=== PATIENT | female | born 1975 | race African-American/Black ===

== ENCOUNTER 2017-01-25 21:40 | Emergency (ER) | payer OTHER ==
[~2017-01-25] VITALS: Ht 165.1 cm; Wt 154.2 kg
[~2017-01-25 21:40] MED LIST: AMLODIPINE BES2.5 MG PO; AMLODIPINE10 MG PO; ASPIR 8181 MG PO; ATENOLOL25 MG PO; ATENOLOL50 MG PO; AUGMENTIN 875 M1 TAB PO; BENTYL20 MG PO; CYCLOBENZAPRINE10 M1 PO; CYCLOBENZAPRINE10 MG PO; DIFLUCAN150 MG PO; ECOTRIN81 MG PO; FLOVENT0.11 MG/Ac INH; GLIMEPIRIDE4 MG PO; GLUCOPHAGE500 MG PO; HYDRODIURIL 2525 MG PO; IBUPROFEN800 M1 PO; IBUPROFEN800 MG PO; LANTUS SOL100 UNIT/1 SC; LISINOPRIL40 MG PO; METFORMIN HCL1000 MG PO; MOBIC 15MG15 MG PO; MOTRIN800 MG PO; MULTIVITAMIN1 TAB PO; NAPROSYN500 M1 PO; NORCO 325 MG-51 TAB PO; PERCOCET 325 MG1 TA2 PO; PROAIR HFA0.09 MG/Ac INH; PROTONIX 20MG T20 MG PO; TAMIFLU 75MG75 MG PO; TESSALON PERLE100 MG PO; TRADJENTA5 MG PO; TYLENOL #31 TAB PO; ZOFRAN ODT4 MG PO
--- NOTE | 2017-01-25 23:49 | ED HEADACHE COMPLAINT ---
History of Present Illness General Chief Complaint: Headache Stated Complaint: PT HAS A HEAD ACHE FOR THREE DAYS Source: patient Exam Limitations: no limitations Vital Signs & Intake/Output Vital Signs & Intake/Output Vital Signs Date Time Temp Pulse Resp B/P B/P Pulse O2 O2 Flow FiO2 Mean Ox Delivery Rate 01/25 2243 96.4 73 16 152/84 95 Room Air ED Intake and Output 01/26 0000 01/25 1200 Intake Total 0 Output Total Balance 0 Intake, Oral 0 Patient 340 lb Weight Weight Reported by Patient Measurement Method Allergies Coded Allergies: capsaicin (From NAPROPAX) (Severe, paralysis of one side of face, mouth ) menthol (From NAPROPAX) (Severe, paralysis of one side of face, mouth 08/04/16) naproxen (From NAPROPAX) (Severe, paralysis of one side of face, mouth 08/04/16 ) NO KNOWN ALLERGIES (08/04/16) Reconcile Medications Albuterol Sulfate (Proair Hfa) 0.09 MG/Actuation CRISTINO 2 PUFF INH PRN ASTHMA ( Reported) Amlodipine Besylate (Amlodipine) 10 MG TAB 1 TAB PO DAILY BP (Reported) Aspirin (Ecotrin) 81 MG ECT 1 TAB PO DAILY HEART/BLOOD (Reported) Atenolol 50 MG TABLET 1 TAB PO DAILY BP (Reported) Cyclobenzaprine HCl 10 MG TABLET 1 TAB PO Q8P SPASMS Cyclobenzaprine HCl 10 MG TABLET 1 TAB PO Q8P PAIN OR SPASM Fluticasone Propionate (Flovent) 0.11 MG/Actuation CRISTINO 2 PUFF INH PRN ASTHMA (Reported) Glimepiride 4 MG TABLET 1 TAB PO BID DIABETES (Reported) Ibuprofen 800 MG TABLET 1 TAB PO TID pain Insulin Glargine,Hum.rec.anlog (Lantus Solostar) 100 UNIT/ML (3 ML) INSULN.PEN 20 UNIT SC QPM DM (Reported) Linagliptin (Tradjenta) 5 MG TABLET 1 TAB PO DAILY DIABETES (Reported) Lisinopril 40 MG TABLET 1 TAB PO DAILY B/P (Reported) METFORMIN HCL (Metformin HCl) 1,000 MG TABLET 1 TAB PO BID DIABETES (Reported ) Pantoprazole Sodium (Protonix) 20 MG TAB 1 TAB PO DAILY STOMACHE ACID Triage Note: TRIAGE: HEADACHE FROM BACK OF HEAD TRAVELS TO FRONT 7/10 X2-3 DAYS, CONSTANT, DENIES MITIGATING FACTORS. ALSO C/O LEFT SIDED NECK PAIN. ENDORSES RUNNY NOSE AND SINUS CONGESTION. +DIZZY, SLIGHT DIFFICULTY FOCUSING VISION. SPEECH IS CLEAR. MEDICATED WITH TYLENOL IN TRIAGE Triage Nurses Notes Reviewed? yes : No Patient currently breastfeeds: No HPI: This patient is a 41-year-old female with past medical history including hypertension who presented to the emergency department today for evaluation of headache 3 days. The patient reported that the headache has been constant over the last 3 days. She reported that he gets up to a 7.5 out of 10. The pain is throbbing and located across her forehead and the back of her head. She reported that she did have some blurry vision that she was sitting in the waiting room. She denied any numbness or tingling in her extremities. No difficulty breathing, chest pain, abdominal pain, auras. She reported dizziness is standing. (BAILEY RIVAS PA-C) Past History Travel History Traveled to [place] past 21 day No Medical History Any Pertinent Medical History? 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 No (BAILEY RIVAS PA-C) Review of Systems Review of Systems Constitutional: Reports: no symptoms. Eyes: Reports: see HPI. Ears, Nose, Throat, Mouth: Reports: no symptoms. Respiratory: Reports: no symptoms. Cardiovascular: Reports: no symptoms. Gastrointestinal/Abdominal: Reports: no symptoms. Genitourinary: Reports: no symptoms. Musculoskeletal: Reports: no symptoms. Skin: Reports: no symptoms. Neurological/Psychological: Reports: see HPI. All Other Systems: Reviewed and Negative (BAILEY RIVAS PA-C) Physical Exam Physical Exam Cranial Nerves: normal hearing, normal speech, PERRL Comments: Well-developed well-nourished person in no acute distress HEENT: Normal EENT exam, head normocephalic, moist mucous membranes PERRLA bilaterally. EOMI bilaterally Nose is atraumatic. She Neck: Supple, no lymphadenopathy. No midline tenderness Back: Normal gait Cardiovascular: Regular rate and rhythm with no murmurs Respiratory: Chest nontender. Extremity: Normal equal pulses Neuro: Alert oriented x3, cranial nerves II through XII grossly intact. Skin: No appreciable rash on exposed skin, skin is warm and dry. Psych: Mood and affect is normal Core Measures Severe Sepsis Present: No Septic Shock Present: No (BAILEY RIVAS PA-C) Progress Differential Diagnosis: carotid dissection, cav sinus thromb, cluster MCINTYRE, IC mass/tumor, intracranial Hem., meningitis, migraine MCINTYRE, sinusitis, SSS thrombosis, subarach. Hem., tension MCINTYRE, temporal arteritis, TMJ syndrome Plan of Care: Current Medications Sig/Dee Start time Last Medication Dose Stop Time Status Admin Morphine Sulfate 4 MG ONCE ONE 01/25 2345 CAN (Morphine) 01/25 2346 Promethazine HCl 25 MG ONCE ONE 01/25 2345 CAN (Phenergen) 01/25 2346 Sodium Chloride 1,000 ML BOLUS ONE 01/25 2345 CAN (Normal Saline 0.9%) 01/26 0044 Comments: Upon initially approaching the patient's bedside, she is sleeping comfortably on stretcher. No acute distress. Nontoxic appearing. No focal neurologic deficits on physical examination. Likely migraine headache. Stable for discharge home. (BAILEY RIVAS PA-C) Departure Departure Disposition: HOME OR SELF CARE Condition: Stable Clinical Impression Primary Impression: Headache Qualifiers: Headache type: unspecified Headache chronicity pattern: unspecified pattern Intractability: not intractable Qualified Code: R51 - Headache Referrals: YEE VERGARA MD (PCP/Family) Additional Instructions: Rest and be sure to stay hydrated. Please follow-up with your primary care physician. Return for any worsening symptoms or concerns. Departure Forms: Customer Survey General Discharge Information Prescriptions: Current Visit Scripts Cyclobenzaprine HCl 1 TAB PO Q8P #20 TAB (BAILEY RIVAS PA-C) PA/BULL GANG SUPERVISOR Co-Sign Statement Statement: ED Attending supervision documentation- [] I saw and evaluated the patient. I have also reviewed all the pertinent lab results and diagnostic results. I agree with the findings and the plan of care as documented in the PA's/BULL GANG SUPERVISOR's documentation. [X] I have reviewed the ED Record and agree with the PA's/BULL GANG SUPERVISOR's documentation. [] Additions or exceptions (if any) to the PAs/BULL GANG SUPERVISOR's note and plan are summarized below: [] (PROSPER LEE,ALLEGRA Guillen)
[2017-01-26] MEDS ORDERED: CYCLOBENZAPRINE10 M1 PO (05:52)
[2017-01-26 05:54] VITALS: BP 156/91
== END 2017-01-26 05:59 ==
LOC: ERH 21:40
DX: R51 Headache (principal)
CPT/HCPCS: 96372

== ENCOUNTER 2017-02-21 13:21 | Emergency (ER) | payer OTHER ==
[~2017-02-21] VITALS: Ht 165.1 cm; Wt 152.9 kg
--- NOTE | 2017-02-21 13:39 | ED SKIN/ALLERGY COMPLAINT ---
History of Present Illness General Chief Complaint: General Adult Stated Complaint: SKIN HARDENING/DISCOLORATION LOWER LT LEG Source: patient Exam Limitations: no limitations Vital Signs & Intake/Output Vital Signs & Intake/Output Vital Signs Date Time Temp Pulse Resp B/P B/P Pulse O2 O2 Flow FiO2 Mean Ox Delivery Rate 02/21 1430 229/97 02/21 1416 97.3 71 18 229/97 99 Room Air 02/21 1331 96.9 73 18 163/112 100 Room Air ED Intake and Output 02/22 0000 02/21 1200 Intake Total Output Total Balance Patient 337 lb Weight Weight Reported by Patient Measurement Method Allergies Coded Allergies: capsaicin (From NAPROPAX) (Severe, paralysis of one side of face, mouth ) menthol (From NAPROPAX) (Severe, paralysis of one side of face, mouth 08/04/16) naproxen (From NAPROPAX) (Severe, paralysis of one side of face, mouth 08/04/16 ) NO KNOWN ALLERGIES (08/04/16) Reconcile Medications Albuterol Sulfate (Proair Hfa) 0.09 MG/Actuation CRISTINO 2 PUFF INH PRN ASTHMA ( Reported) Albuterol Sulfate (Proair Hfa) 90 MCG HFA.AER.AD 2 PUF INH Q4-6 PRN PRN ASTHMA (Reported) Amlodipine Besylate (Amlodipine) 10 MG TAB 1 TAB PO DAILY BP (Reported) Amlodipine Besylate 10 MG TABLET 1 TAB PO DAILY HTN (Reported) Aspirin (Ecotrin) 81 MG ECT 1 TAB PO DAILY HEART/BLOOD (Reported) Atenolol 50 MG TABLET 1 TAB PO DAILY BP (Reported) Atenolol 50 MG TABLET 1 TAB PO DAILY HTN (Reported) Cyclobenzaprine HCl 10 MG TABLET 1 TAB PO Q8P SPASMS Cyclobenzaprine HCl 10 MG TABLET 1 TAB PO Q8P PAIN OR SPASM Fluticasone Propionate (Flovent) 0.11 MG/Actuation CRISTINO 2 PUFF INH PRN ASTHMA (Reported) Fluticasone Propionate (Flovent Hfa) 110 MCG/ACTUATION AER.W.ADAP 2 PUF INH BID ASTHMA (Reported) Furosemide 20 MG TABLET 1 TAB PO DAILY FLUID RETENSION (Reported) Glimepiride 4 MG TABLET 1 TAB PO BID DIABETES (Reported) Glimepiride 4 MG TABLET 1 TAB PO DAILY DIABETES (Reported) Hydrochlorothiazide 25 MG TABLET 1 TAB PO DAILY HTN (Reported) Ibuprofen 800 MG TABLET 1 TAB PO TID pain Insulin Glargine,Hum.rec.anlog (Lantus Solostar) 100 UNIT/ML (3 ML) INSULN.PEN 20 UNIT SC QPM DM (Reported) [LANCETS] TEST GLUCOSE 3 TIMES PER DAY Linagliptin (Tradjenta) 5 MG TABLET 1 TAB PO DAILY DIABETES (Reported) Linagliptin (Tradjenta) 5 MG TABLET 1 TAB PO DAILY DIABETES (Reported) Lisinopril 40 MG TABLET 1 TAB PO DAILY B/P (Reported) Lisinopril 40 MG TABLET 1 TAB PO DAILY HTN (Reported) Meloxicam 15 MG TABLET 1 TAB PO DAILY ANTI-INFLAMMATORY (Reported) METFORMIN HCL (Metformin HCl) 1,000 MG TABLET 1 TAB PO BID DIABETES (Reported ) Metformin HCl 1,000 MG TABLET 1 TAB PO BID DIABETES (Reported) Pantoprazole Sodium (Protonix) 20 MG TAB 1 TAB PO DAILY STOMACHE ACID Triage Note: C/O SMALL, DARK, HARD AREA ON LEFT LOWER LEG. DENIES INJURY OR INSECT BITE. Triage Nurses Notes Reviewed? yes Onset: Abrupt Duration: day(s): (1) Timing: single episode today Severity: mild Possible Factors: no cause identified No Modifying Factors: none : No Patient currently breastfeeds: No HPI: This is a 41-year-old female with history of diabetes, recent significant weight loss with diet and exercise who presents to the ER with chief complaint of bump to her left lower extremity. She denies any pain or trauma. She has the chest skin is changed to dark black. He was never red or warm. She was worried that it might be a clot. Denies any chest pain or sinus red. She does not check her sugars regularly. Past History Travel History Traveled to [place] past 21 day No Medical History Any Pertinent Medical History? 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 No Review of Systems Review of Systems Constitutional: Denies: chills, fever. EENTM: Reports: no symptoms. Respiratory: Denies: cough, short of breath, sputum production. Cardiovascular: Denies: chest pain, palpitations, peripheral edema. GI: Denies: abdominal pain, vomiting. Genitourinary: Denies: discharge, dysuria. Musculoskeletal: Reports: no symptoms. Skin: Reports: lesions, lumps. Neurological/Psychological: Reports: no symptoms. Hematologic/Endocrine: Reports: no symptoms. Immunologic/Allergic: Reports: no symptoms. All Other Systems: Reviewed and Negative Physical Exam Physical Exam General Appearance: well developed/nourished, alert, awake, mild distress, obese Head: atraumatic Eyes: Bilateral: PERRL, EOMI. Ears, Nose, Throat: normal pharynx, normal ENT inspection, hearing grossly normal Neck: normal inspection, supple Respiratory: normal breath sounds Cardiovascular: regular rate/rhythm Peripheral Pulses: 2+ radial (R), 2+ radial (L) Gastrointestinal: soft, non-tender, OBESE Back: normal inspection Extremities: normal inspection, normal range of motion, no edema Neurologic/Psych: awake, alert, oriented x 3, normal mood/affect Skin: intact, normal color, warm/dry Skin Problem Location: LEFT LOWER LEG Skin Problem Character: thickening, FINGERTIP AREA OF DISCOLORED, HARD SKIN OVER LEFT LATERAL LOWER LEG Lymphatic: no anterior cervical reina Progress Differential Diagnosis: UNCONTROLLED DM, UNCONTROLLED HTN, CHRONIC SKIN CHANGES, MEDICATION NON COMPLAINCE, FURUNCLE, HYPERTROPHIC SKIN CHANGES, KELOID Plan of Care: Current Medications Sig/Dee Start time Last Medication Dose Stop Time Status Admin Amlodipine Besylate 10 MG ONCE ONE 02/21 143 UNVr (Norvasc) 02/21 1431 Atenolol 50 MG ONCE ONE 02/21 1430 UNVr (Tenormin) 02/21 143 Hydrochlorothiazide 25 MG ONCE ONE 02/21 1430 UNVr (Hydrodiuril) 02/21 143 Lisinopril 40 MG ONCE ONE 02/21 1430 UNVr (Prinivil) 02/21 143 ELEVATED FINGERSTICK. PATIENT DENIES IV, LABS, STATES THAT IT IS MUCH BETTER THAN HER USUAL SUGAR'S IN THE 600'S. BP ELEVATED, PATIETN STATES SHE DID NOT TAKE HER MEDS. AGREES TO PAIN BP MEDS. PATIENT ELOPED FROM THE ED. (CATHERINE LEE,CHI) Departure Departure Time of Disposition: 1550 Disposition: ER WALKOUT Condition: Stable Clinical Impression Primary Impression: Skin abnormality Secondary Impressions: Hyperglycemia, Hypertensive urgency Referrals: YEE VERGARA MD (PCP/Family) Additional Instructions: Warm soaks to the area. If you start to develop any redness or fever please return. Otherwise follow up with her primary care doctor. You may require further evaluation with a manager data warehousing for further evaluation for 6 weeks. Departure Forms: Customer Survey General Discharge Information Prescriptions: Current Visit Scripts [GLUCOSE TEST STRIP] BOX #1 [LANCETS] #1 BOX TEST GLUCOSE 3 TIMES PER DAY ED Attending Observation Initial Observation Note: I have seen and personally examined SLAUD HERNANDES on 02/22/17 at 1015. I agree with the current emergency department documentation. The disposition (admission or discharge) is uncertain at this time, she needs a period of observation for the following reason(s): The ED Nurse caring for this patient has been personally informed as to what the patient is being observed for.
[2017-02-21] MEDS ORDERED: LISINOPRIL40 M1 PO (13:48)
[2017-02-21] MEDS ORDERED: PROAIR HFA8.5 GM INH (13:48)
[2017-02-21] MEDS ORDERED: FLOVENT HFA12 G1 INH (13:48)
[2017-02-21] MEDS ORDERED: GLIMEPIRIDE4 M1 PO (13:49)
[2017-02-21] MEDS ORDERED: HYDROCHLOROTHIA25 M1 PO (13:49)
[2017-02-21] MEDS ORDERED: TRADJENTA5 M1 PO (13:49)
[2017-02-21] MEDS ORDERED: METFORMIN HCL1000 M1 PO (13:50)
[2017-02-21] MEDS ORDERED: ATENOLOL50 M1 PO (13:50)
[2017-02-21] MEDS ORDERED: AMLODIPINE BESY10 M1 PO (13:50)
[2017-02-21] MEDS ORDERED: MELOXICAM15 M1 PO (13:50)
[2017-02-21] MEDS ORDERED: FUROSEMIDE20 M1 PO (13:51)
[2017-02-21] MEDS ORDERED: LANCETS (14:10)
[2017-02-21] MEDS ORDERED: GLUCOSE TEST STRIP (14:10)
[2017-02-21 14:30] VITALS: BP 229/97
== END 2017-02-21 15:40 ==
LOC: ERH 13:21
DX: L98.9 Disorder of the skin and subcutaneous tissue, unspecified (principal); I16.0 Hypertensive urgency; E11.65 Type 2 diabetes mellitus with hyperglycemia; Z79.84 Long term (current) use of oral hypoglycemic drugs

== ENCOUNTER 2017-11-22 20:36 | Emergency (ER) | payer OTHER ==
[~2017-11-22] VITALS: Ht 170.2 cm; Wt 149.7 kg
[~2017-11-22 20:36] MED LIST changes: -AUGMENTIN 875-1 EACH PO; -MAGIC MOUTHWAS PO
--- NOTE | 2017-11-23 01:00 | ED THROAT/DENTAL COMPLAINT ---
History of Present Illness General Chief Complaint: Sore Throat, Dental Pain Stated Complaint: COMPLICATION WITH SURGERY TODAY Source: patient, family, old records Exam Limitations: no limitations Vital Signs & Intake/Output Vital Signs & Intake/Output Vital Signs Date Time Temp Pulse Resp B/P B/P Pulse O2 O2 Flow FiO2 Mean Ox Delivery Rate 11/23 010 98.9 86 18 135/88 96 11/221 97.8 77 20 166/99 99 Room Air ED Intake and Output 11/23 0000 11/22 1200 Intake Total Output Total Balance Patient 330 lb Weight Weight Estimated Measurement Method Allergies Coded Allergies: naproxen (From NAPROSYN) (Severe, STROKE SYMPTOMS IN FACE PER PT 05/27/17) Anesthetics - Amide Type (LIPS AND FACE SWELLED 11/18/17) Anesthetics - Nemo Type- Parabens (LIPS AND FACE SWELLED 11/18/17) Uncoded Allergies: IV CONTRAST (Severe, SOB W/ THROAT TIGHTENING 11/23/17) Reconcile Medications Albuterol Sulfate (Proair Hfa) 90 MCG HFA.AER.AD 2 PUF INH Q4-6 PRN PRN ASTHMA (Reported) Amlodipine Besylate 10 MG TABLET 1 TAB PO DAILY HTN (Reported) Aspirin (Ecotrin*) 81 MG TABLET.DR 1 TAB PO DAILY HEART/BLOOD (Reported) Atenolol 50 MG TABLET 1 TAB PO DAILY HTN (Reported) Cyanocobalamin (Vitamin B-12) (Cyanocobalamin Injection) 1,000 MCG/ML VIAL 1 ML IM Q30D SUPPLEMENT (Reported) Cyclobenzaprine HCl 10 MG TABLET 1 TAB PO BID PRN MUSCLE SPASMS (Reported) Fluticasone Propionate (Flovent Hfa) 110 MCG/ACTUATION AER.W.ADAP 2 PUF INH BID ASTHMA (Reported) Furosemide 20 MG TABLET 1 TAB PO DAILY FLUID RETENSION (Reported) Glimepiride 4 MG TABLET 1 TAB PO BID DM (Reported) Hydrochlorothiazide 25 MG TABLET 1 TAB PO DAILY HTN (Reported) Hydroxyzine Pamoate 50 MG CAPSULE 1 CAP PO TID PRN allergic reaction/hives Ibuprofen 800 MG TABLET 1 TAB PO TID PRN PAIN (Reported) Insulin Glargine,Hum.rec.anlog (Lantus Solostar) 100 UNIT/ML (3 ML) INSULN.PEN 20 UNIT SC QPM DM (Reported) Linagliptin (Tradjenta) 5 MG TABLET 1 TAB PO DAILY DIABETES (Reported) Lisinopril 40 MG TABLET 1 TAB PO DAILY HTN (Reported) [Magic mouthwas] 5-10 ML PO Q6P PRN mouth pain 1:1:1=maalox:lidocaine:benadryl Meloxicam 15 MG TABLET 1 TAB PO DAILY PRN PAIN/INFLAMMATION (Reported) Metformin HCl 1,000 MG TABLET 1 TAB PO BID DIABETES (Reported) [SINTIA] 1 CAP PO BID DIET SUPPLEMENT (Reported) Core Measure Meds Pre-Hospital aspirin Triage Note: PT TO TRIAGE S/P GALLBLADDER REMOVAL TODAY. PT DENIES ANY COMPLAINTS OR COMPLICATIONS WITH SURGICAL SITE HOWEVER IS C/O PAIN TO RIGHT SIDE OF MOUTH. PER PT NOTICED HOLE IN BACK OF MOUTH PRIOR TO GOING HOME TODAY. ANESTHESIOLOGIST CAME TO SEE PT AND TOLD PT IT WAS A SCRATCH FROM INTUBATION PER PT. 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 yes Onset: Afternoon Duration: hour(s):, constant, continues in ED Timing: recent history Injury Environment: hospital Severity: moderate, severe Modifying Factors: Worsens With: eating, movement. LMP (ages 10-50): unknown : No Patient currently breastfeeds: No HPI: 12 hours prior to admission patient completed laparoscopic cholecystectomy in recovery complained of right tongue pain that has progressed in severity with right neck pain and swelling worse with movement palpation sharp constant. She denies fever chills nausea vomiting diarrhea abdominal pain chest pain shortness of breath headache dysuria. Past History Travel History Traveled to [place] past 21 day No Medical History Any Pertinent Medical History? 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 No Review of Systems Review of Systems Constitutional: Reports: no symptoms. EENTM: Reports: see HPI, mouth pain. Respiratory: Reports: no symptoms. Cardiovascular: Reports: no symptoms. GI: Reports: no symptoms. Genitourinary: Reports: no symptoms. Musculoskeletal: Reports: see HPI, neck pain. Skin: Reports: no symptoms. Neurological/Psychological: Reports: no symptoms. Hematologic/Endocrine: Reports: no symptoms. Immunologic/Allergic: Reports: no symptoms. All Other Systems: Reviewed and Negative Physical Exam Physical Exam General Appearance: well developed/nourished, alert, awake, anxious, moderate distress, obese Head: atraumatic, normal appearance Eyes: Bilateral: normal appearance, PERRL, EOMI. Ears: Bilateral: canal normal, Tympanic normal. Nose: normal inspection Mouth/Throat: base of tongue with abrasion not actively bleeding Neck: supple, tender lateral Cardiovascular/Respiratory: normal breath sounds, normal peripheral pulses, regular rate/rhythm, no respiratory distress Gastrointestinal: wounds healing well Back: normal inspection, normal range of motion, no vertebral tenderness Neurologic/Psych: no motor/sensory deficits, awake, alert, oriented x 3, normal gait, secondary set up man II-XII nml as tested Skin: intact, normal color, warm/dry Core Measures ACS in differential dx? No Sepsis Present: No Sepsis Focused Exam Completed? No Progress Differential Diagnosis: stomatitis/gingivitis Plan of Care: Current Medications Sig/Dee Start time Last Medication Dose Stop Time Status Admin Oxycodone/ 2 TAB ONCE ONE 11/23 114 UNVr 11/23 Acetaminophen 11/24 115 011 (Percocet) Diagnostic Imaging: Viewed by Me: CT Scan. Discussed w/RAD: CT Scan. Radiology Impression: Soft tissue gas in the right parapharyngeal region. Etiology is nonspecific, but could correlate with a traumatic intubation injury. No gross evidence of fluid collection on this noncontrast study. Departure Departure Time of Disposition: 148 Disposition: HOME OR SELF CARE Condition: Stable Clinical Impression Primary Impression: Soft tissue emphysema Secondary Impressions: Abrasion of tongue Referrals: Sandra Diego MD Call for ENT follow up Nicola Blair MD (PCP/Family) Departure Forms: Customer Survey General Discharge Information Prescriptions: Current Visit Scripts [Magic mouthwas] 5-10 ML PO Q6P PRN mouth pain #270 ML 1:1:1=maalox:lidocaine:benadryl
[2017-11-23 01:07] VITALS: BP 135/88
--- NOTE | 2017-11-23 01:25 | CT SCAN REPORT ---
EXAMINATION: CT SOFT TISSUE NECK WITHOUT CONTRAST CLINICAL INFORMATION: Status post intubation with neck pain. COMPARISON: None. TECHNIQUE: Helical imaging was performed in the axial plane with generation of coronal and sagittal reformatted images. FINDINGS: There is soft tissue gas in the right parapharyngeal soft tissues, medial to the right submandibular gland. The origin is nonspecific but could be associated with traumatic intubation injury given the clinical history. No cervical adenopathy is identified. The parotid glands are homogeneous in attenuation. The submandibular glands are normal. No contour abnormality is seen within the oral cavity or pharyngeal mucosal space. The laryngeal structures are normal. No extra mucosal soft tissue mass or gross evidence of fluid collection is seen. No retropharyngeal fluid collection is seen. The thyroid gland is normal. The superior mediastinum is unremarkable. The lung apices are clear. The mastoid air cells and visualized portions of the paranasal sinuses are well-aerated. The temporomandibular joints are normal. No periapical disease is identified. No acute osseous abnormalities are seen. Mild degenerative changes in the cervical spine. The imaged portions of the brain parenchyma are unremarkable. IMPRESSION: Soft tissue gas in the right parapharyngeal region. Etiology is nonspecific, but could correlate with a traumatic intubation injury. No gross evidence of fluid collection on this noncontrast study. This critical result was discussed with Mik Goss MD by telephone at 11/23/2017 1:19 AM and it was ascertained that the content and urgency of the report was understood at the time of direct communication.
[2017-11-23] MEDS ORDERED: MAGIC MOUTHWAS PO (01:53)
[2017-11-23] MEDS ORDERED: AUGMENTIN 875-1 EACH PO (23:43)
== END 2017-11-23 02:26 ==
LOC: ERH 20:36
DX: S00.512A Abrasion of oral cavity, initial encounter (principal); J43.8 Other emphysema; X58.XXXA Exposure to other specified factors, initial encounter; Y92.9 Unspecified place or not applicable; Y93.9 Activity, unspecified

== ENCOUNTER → 2017-11-22 | Day surgery (SDC) | payer OTHER ==
[~2017-11-22] VITALS: Ht 165.1 cm; Wt 131.1 kg
[~2017-11-22] MED LIST changes: +AMLODIPINE BESY10 M1 PO; +ASPIRIN EC81 M1 PO; +ATENOLOL50 M1 PO; +AUGMENTIN 875-1 EACH PO; +CYANOCOBAL1000 MCG/2 IM; +FLOVENT HFA12 G1 INH; +FUROSEMIDE20 M1 PO; +GLIMEPIRIDE4 M1 PO; +GLUCOSE TEST STRIP; +HYDROCHLOROTHIA25 M1 PO; +HYDROXYZINE PAM50 M1 PO; +LANCETS; +LISINOPRIL40 M1 PO; +MAGIC MOUTHWAS PO; +MELOXICAM15 M1 PO; +METFORMIN HCL1000 M1 PO; +PROAIR HFA8.5 GM INH; +TRADJENTA5 M1 PO; +TRU PO
--- NOTE | 2017-11-22 09:10 | Operative Report ---
Operative/Inv Procedure Report Surgery Date: 11/22/17 Name of Procedure: Laparoscopic cholecystectomy Pre-Operative Diagnosis: Cholelithiasis, Morbid Obesity Post-Operative Diagnosis: Same Estimated Blood Loss: less than 50ml Surgeon/Central Office Technician: William Lawson DO Anesthesia: general endotracheal tube IV Fluids: 750 cc Drains: None Specimens: Gallbladder Complications: None Condition: Stable Operative Indication: This is a 42-year-old female underwent an ultrasound that revealed gallstones. Patient is in the workup for bariatric surgery. A laparoscopic possible open cholecystectomy was discussed in detail. All risks including but not limited to bleeding, infection, bile leak, and injury to surrounding duct/bowel were discussed in detail. The patient understood everything and decided to proceed. Operative/Procedure Note Note: The patient was brought to the operating room and placed on the operating room table in supine position. Venodyne stockings were placed and adequate general endotracheal anesthesia was obtained. The patient was prepped and draped in standard surgical fashion. We began the procedure by making a 2 cm transverse incision in the infraumbilical crease. The incision was carried down to the fascia, once the fascia was clearly visualized it was picked up between 2 sunil clamps. The fascia was divided in the midline and once we entered the peritoneum 2 stay 0 Vicryl sutures were placed on each side. A 12 mm blunt port was inserted and the abdominal cavity was insufflated to 15 mmHg. A 10 mm 30 laparoscope was introduced and upon initial examination no obvious gross pathology was seen. We did note a distended gallbladder in the right upper quadrant. Accessory trocars were placed, all 5 mm, one in the epigastrium and 2 in the right upper quadrant (one in the midclavicular line and one in the anterior axillary line, both 2 fingerbreadths below the costal margin). The gallbladder was grasped with the lateralmost trocar and retracted up over the liver. Using the other 2 accessory trocars the infundibulum was grasped and the peritoneum was lysed using blunt dissection and using hook electrocautery. The cystic duct and cystic artery were visualized. The common bile duct was visualized and it was away from our area of dissection. The cystic duct and artery were skeletonized and divided between clips, 3 clips to stay and one clip on the gallbladder side for the duct and 2 clips to stay and one clip on the gallbladder side for the artery. The gallbladder was dissected off the liver bed using hook electrocautery maintaining hemostasis. Prior to completely removing the gallbladder off the liver bed we examined the area of dissection no obvious bile leak or bleeding was noted, the clips appeared to be in good position. The gallbladder was completely detached from the liver bed. We switched to a 5 mm laparoscope and a 10 mm Endobag was introduced through the umbilical trocar site. The gallbladder was placed in the bag and removed through the umbilicus. The abdomen was reinsufflated. We switched back to a 10 mm laparoscope and examined our area of dissection. No obvious bile leak or bleeding was noted. The right upper quadrant was irrigated until clear. All ports were removed under direct visualization, no obvious bleeding was noted. The umbilical trocar site was closed using 0 Vicryl suture. The skin was closed using 4-0 Monocryl. Steri-Strips and dressings were placed. The patient was successfully extubated and transferred to the recovery room in stable condition. The patient tolerated the procedure well with no complications. Findings: Distended gallbladder, multiple stones CC: Johnnie LEE,Nicola
== END ==
LOC: STS 02:36
DX: K80.10 Calculus of gallbladder with chronic cholecystitis without obstruction (principal); E66.01 Morbid (severe) obesity due to excess calories; Z68.42 Body mass index [BMI] 45.0-49.9, adult; E11.9 Type 2 diabetes mellitus without complications; Z79.4 Long term (current) use of insulin; I10 Essential (primary) hypertension; G47.33 Obstructive sleep apnea (adult) (pediatric); Z87.891 Personal history of nicotine dependence
CPT/HCPCS: 81025; 88304; C9399; J0131; J0690; J1644; J1815; J2250